=== PATIENT | female | born 1980 | race Two or more races ===

== ENCOUNTER 2023-08-13 03:55 | Inpatient (IN) ==
[2023-08-13 04:24] VITALS: BMI 29.2
[2023-08-13 04:40] LABS: BILIRUBIN,URINE NEGATIVE (NEGATIVE); BLOOD/HEMOGLOBIN,URINE NEGATIVE (NEGATIVE); GLUCOSE, URINE NEGATIVE (NEGATIVE); KETONES,URINE NEGATIVE (NEGATIVE); LEUKOCYTE ESTERASE ,URINE 2+ (NEGATIVE); NITRITES,URINE NEGATIVE (NEGATIVE); PROTEIN,URINE 1+ (NEGATIVE); UROBILINOGEN,URINE NORMAL (NORMAL)
[2023-08-13 04:53] LABS: APPEARANCE,URINE CLEAR (CLEAR); COLOR,URINE YELLOW (YELLOW); RBC,URINE 0-2 /HPF (0-3)
[2023-08-13 04:54] LABS: AMNISURE ROM TEST NO MEMBRANES RUPTURE (NO RUPTURE); BACTERIA,URINE 1+ /HPF (NEGATIVE); SQUAMOUS EPITHELIAL CELL,UR FEW /HPF (NEGATIVE)
[2023-08-13 05:26] LABS: BASOPHILS # (AUTO) 0.1 X10^3/uL (0.0-0.1); BASOPHILS % (AUTO) 0.9 % (0.2-1.0); EOSINOPHILS % (AUTO) 0.4 % (0.9-2.9); HEMATOCRIT 31.6 % (36.0-47.0); HEMOGLOBIN 10.3 g/dL (12.0-16.0); LYMPHOCYTES # (AUTO) 1.3 X10^3/uL (1.3-2.9); LYMPHOCYTES % (AUTO) 20.7 % (21.0-51.0); MEAN CORPUSCULAR HEMOGLOBIN 25.1 pg (27.0-34.0); MEAN CORPUSCULAR HGB CONC 32.6 g/dL (33.0-35.0); MEAN CORPUSCULAR VOLUME 76.9 fL (80.0-100.0); MEAN PLATELET VOLUME 10.8 fL (7.4-11.0); MONOCYTES # (AUTO) 0.3 x10^3/uL (0.3-0.8); MONOCYTES % (AUTO) 4.4 % (0.0-13.0); NEUTROPHILS # (AUTO) 4.6 x10^3/uL (2.2-4.8); NEUTROPHILS % (AUTO) 73.6 % (42.0-75.0); PLATELET COUNT 162 X10^3/uL (150.0-450.0); RED CELL DISTRIBUTION WIDTH 16.2 % (11.6-16.5); WHITE BLOOD COUNT 6.2 X10^3/uL (3.6-10.0)
[2023-08-13 05:36] LABS: ALANINE AMINOTRANSFERASE 11 Units/L (12-78); ALBUMIN 2.6 g/dL (3.4-5.0); ALKALINE PHOSPHATASE 229 Units/L (46-116); ASPARTATE AMINO TRANSFERASE 20 Units/L (15-37); BLOOD UREA NITROGEN 9 mg/dL (7-18); CALCIUM 7.7 mg/dL (8.5-10.1); CARBON DIOXIDE 19.7 mmol/L (21-32); CHLORIDE 104 mmol/L (98-107); COR CA(FOR HYPOALB) 8.8 mg/dL (8.5-10.1); CREATININE 0.58 mg/dL (0.55-1.02); GLUCOSE 89 mg/dL (65-99); POTASSIUM 3.7 mmol/L (3.5-5.1); SODIUM 134 mmol/L (136-145); eGFR NON BLACK RACES > 60 (>60)
[2023-08-13] MEDS ORDERED: REGLAN INJ 10 MG VIAL IVP PRN (05:36)
[2023-08-13] MEDS ORDERED: ZOFRAN INJ 4 MG VIAL IVP PRN (05:36)
[2023-08-13] MEDS ORDERED: NUBAIN INJ 20 MG AMP IVP PRN (05:36)
[2023-08-13] MEDS ORDERED: D5 LR + PITOCIN 10 UNITS/L 10 UNITS/1,000 ML BAG IV PRN (05:36)
[2023-08-13] MEDS ORDERED: PITOCIN IVP ONE (05:36)
[2023-08-13] MEDS ORDERED: BETADINE SOLN ONE ×2 (05:51→09:36)
[2023-08-13] MEDS ORDERED: D5 1/2 NS 1,000 mL + PITOCIN 20 UNITS/L IV 20 UNITS/1,000 ML BAG IV ONE (05:52)
[2023-08-13] MEDS ORDERED: LR 1,000 ML IV 1,000 ML IV SCH (06:00)
[2023-08-13] MEDS ORDERED: XYLOCAINE 1 % (PLAIN) ONE (08:04)
[2023-08-13] MEDS ORDERED: MOTRIN TAB 800 MG PO PRN (08:22)
[2023-08-13] MEDS ORDERED: D5 1/2 NS 1,000 ML 1,000 ML with PITOCIN 20 UNITS IV SCH ×2 (09:00)
[2023-08-13] MEDS ORDERED: MOTRIN TAB 800 MG PO ONE (09:07)
[2023-08-13 09:24] VITALS: RESP 18
[2023-08-13] MEDS ORDERED: AMBIEN PO PRN (09:25)
[2023-08-13] MEDS ORDERED: DERMOPLAST PAIN RELIEF SPRAY TOP PRN (09:25)
[2023-08-13] MEDS ORDERED: ADACEL or BOOSTRIX TDaP VACCINE IM ONE (09:25)
[2023-08-13] MEDS ORDERED: PRENATAL PLUS PO SCH (09:25)
[2023-08-13] MEDS ORDERED: MILK OF MAGNESIA PO PRN (09:25)
[2023-08-13 14:39] VITALS: O2SAT 99
[2023-08-13 16:55] VITALS: BP 121/57; PULSE 53; TEMP 99.3
[2023-08-13] MEDS ORDERED: GLUCOPHAGE PO SCH (17:00)
== END 2023-08-13 17:15 | disposition home or self-care (01) | DRG 807 ==
LOC: ER 04:17 → LD 05:12 → MED/SURG 09:35
PROVIDERS: ADMIT Obstetrics & Gynecology Obstetrics; ATTEND Obstetrics & Gynecology Obstetrics
DX: Z37.0 Single live birth; O70.1 Second degree perineal laceration during delivery; O66.0 Obstructed labor due to shoulder dystocia; O24.419 Gestational diabetes mellitus in pregnancy, unspecified control; Z3A.38 38 weeks gestation of pregnancy